=== PATIENT | female | born 1995 | race Caucasian/White ===

== ENCOUNTER 2019-10-11 11:48 | Outpatient (CLI) | payer MEDICAID ==
--- NOTE | 2019-10-13 13:52 | Ultrasound Report ---
Reason: SUPERVISION OF NORMAL Procedure Date: 10/11/2019 Accession Number: [id number] / [id number] Procedure: US - OB Detailed Eval CPT Code: Final Report FULL RESULT: EXAM: COMPLETE OBSTETRICAL ULTRASOUND EXAM DATE: 10/11/2019 02:00 PM. CLINICAL HISTORY: anatomic survey. COMPARISON: None. TECHNIQUE: Real-time sonographic evaluation of the fetus performed by the tassel making machine operator. Multiple wireless sales representative static images were saved for review. DATING: Established EGA 19 weeks 0 days with GUSTAVO 03/06/2020 based on LMP. EGA 21 weeks 4 days with GUSTAVO 02/17/2020 based on the current ultrasound. GENERAL EVALUATION Brown . Cardiac activity: 144 bpm. movement: Present. Presentation: Breech. Placenta: Anterior position. No evidence for previa. Umbilical cord: Not well seen. Central placental cord origin. Amniotic fluid: Subjectively normal. MVP 3.7 cm. BIOMETRY Bi-Parietal Diameter (BPD): 4.9 cm, 21 weeks 0 days Head Circumference (HC): 18.8 cm, 21 weeks 1 day Abdominal Circumference (AC): 16.9 cm, 22 weeks 0 days Femur Length (FL): 3.8 cm, 22 weeks 2 days Estimated Weight: 465 g, out of range. ANATOMY limited by position, anterior placenta, and maternal body habitus. The intracranial structures, stomach, abdominal wall and cord insertion, diaphragm, kidneys, bladder, and extremities were seen and demonstrate no abnormality. profile and facial structures, heart and outflow tracts, spine, and 3 vessel cord not well seen. MATERNAL STRUCTURES Uterus: Unremarkable. Cervix: Long and closed. Transabdominal length 4.4 cm. Right ovary/adnexa: Unremarkable. Left ovary/adnexa: Unremarkable. Free fluid: None. IMPRESSION: 1. Brown intrauterine with gestational age 19 weeks 0 days based on LMP. 2. Estimated weight is out of range for assigned dating. 3. Limited anatomic survey. profile and facial structures, heart and outflow tracts, spine, and 3 vessel cord not well seen. RADIA
== END 2019-10-11 11:49 | disposition home or self-care (01) ==
LOC: DI 11:48
PROVIDERS: ATTEND Nurse Practitioner Obstetrics & Gynecology
DX: Z34.82 Encounter for supervision of other normal pregnancy, second trimester (principal)
CPT/HCPCS: 76811

== ENCOUNTER 2019-11-14 15:04 | Outpatient (CLI) | payer MEDICAID ==
--- NOTE | 2019-11-16 02:05 | Ultrasound Report ---
Reason: SCREENING, COMPLETION OF FAS Procedure Date: 11/14/2019 Accession Number: [id number] / [id number] Procedure: US - OB F/U or Repeat CPT Code: Final Report FULL RESULT: EXAM: FOLLOW-UP OBSTETRICAL ULTRASOUND EXAM DATE: 11/14/2019 03:20 PM. CLINICAL HISTORY: SCREENING, COMPLETION OF FAS. COMPARISON: OB DETAILED EVAL 10/11/2019 12:13 PM. TECHNIQUE: Real-time sonographic evaluation of the fetus performed by the insurance defense paralegal. Additional transvaginal imaging to more accurately evaluate cervical length/placental position/etc. Multiple special service representative static images were saved for review. DATING: Established EGA 23 weeks 6 days with GUSTAVO 03/06/2020 based on stated dates. EGA 26 weeks 3 days with GUSTAVO 02/17/2020 based on first ultrasound. EGA 27 weeks 2 days with GUSTAVO 02/11/2020 based on the current ultrasound. GENERAL EVALUATION Brown . Cardiac activity: 151 bpm. movement: Visualized. Presentation: Transverse breech. Placenta: Anterior position. Amniotic fluid: Normal. JOSEY 13 cm. MVP 5.0 cm. BIOMETRY Bi-Parietal Diameter (BPD): 6.6 cm, 26 weeks 5 days Head Circumference (HC): 24.8 cm, 26 weeks 6 days Abdominal Circumference (AC): 23.5 cm, 27 weeks 6 days Femur Length (FL): 5.1 cm, 27 weeks 4 days Estimated Weight: 1093 g, out of range for 23 weeks 6 days. ANATOMY Three-vessel cord, four-chamber heart, lips/nose, and profile are unremarkable. RVOT, LVOT, and spine not well seen. IMPRESSION: 1. Brown live intrauterine with gestational age 23 weeks 6 days based on stated dates. 2. Estimated weight is out of range for assigned dating. 3. Estimated gestational age by today's composite measurements is 27 weeks 2 days. 4. Three-vessel cord, four-chamber heart, lips/nose, and profile are unremarkable. 5. RVOT, LVOT, and spine remain suboptimally visualized. RADIA
== END 2019-11-14 15:05 | disposition home or self-care (01) ==
LOC: DI 15:04
PROVIDERS: ATTEND Nurse Practitioner Obstetrics & Gynecology
DX: Z36.89 Encounter for other specified antenatal screening (principal)
CPT/HCPCS: 76816

== ENCOUNTER 2019-12-19 08:00 | Outpatient (CLI) | payer MEDICAID ==
[2019-12-19 17:55] LABS: BASOPHILS % (AUTO) 0.2 %; EOSINOPHILS # (AUTO) 0.1 10^3/uL (0.0-0.7); HGB - HEMOGLOBIN 11.5 g/dL (12.0-16.0); LYMPHOCYTES # (AUTO) 1.3 10^3/uL (1.5-3.5); LYMPHOCYTES % (AUTO) 14.3 %; MEAN CORPUSCULAR VOLUME 90.7 fL (81.0-99.0); MEAN PLATELET VOLUME 12.9 fL (7.9-10.8); MONOCYTES # (AUTO) 0.3 10^3/uL (0.0-1.0); MONOCYTES % (AUTO) 3.8 %; NEUTROPHILS # (AUTO) 7.2 10^3/uL (1.5-6.6); NEUTROPHILS % (AUTO) 79.7 %; PLT - PLATELET COUNT 169 10^3/uL (130-450); RED BLOOD COUNT 3.96 10^6/uL (4.20-5.40); RED CELL DISTRIBUTION WIDTH 13.6 % (12.0-15.0); WHITE BLOOD COUNT 9.1 x10^3/uL (4.8-10.8)
== END 2019-12-19 23:59 | disposition home or self-care (01) ==
LOC: LAB.WCP 08:00
PROVIDERS: ATTEND Obstetrics & Gynecology
DX: Z34.80 Encounter for supervision of other normal pregnancy, unspecified trimester (principal)
CPT/HCPCS: 82950; 85025; 86850

== ENCOUNTER 2019-12-20 13:23 | Outpatient (CLI) | payer MEDICAID ==
--- NOTE | 2019-12-21 03:32 | Ultrasound Report ---
Reason: INCOMPLETE FAS, SUPERVISION OF NORMAL Procedure Date: 12/20/2019 Accession Number: [id number] / [id number] Procedure: US - OB F/U or Repeat CPT Code: Final Report FULL RESULT: EXAM: FOLLOW-UP OBSTETRICAL ULTRASOUND EXAM DATE: 12/20/2019 01:37 PM. CLINICAL HISTORY: INCOMPLETE FAS, SUPERVISION OF NORMAL . COMPARISON: OB F/U OR REPEAT 11/14/2019 3:20 PM. TECHNIQUE: Real-time sonographic evaluation of the fetus performed by the gang punch operator. Multiple labor service representative static images were saved for review. DATING: Established EGA 29 weeks 0 days with GUSTAVO 03/06/2020 based on stated dates. GENERAL EVALUATION Brown . Cardiac activity: 139 bpm. movement: Visualized. Presentation: Cephalic. Placenta: Anterior position. Amniotic fluid: Normal. JOSEY 15.1 cm. MVP 5.5 cm. ANATOMY Spine, right ventricular outflow tract, and left ventricular outflow tract are unremarkable. IMPRESSION: 1. Brown live intrauterine with gestational age 29 weeks 0 days based on stated dates. 2. Spine, right ventricular outflow tract, and left ventricular outflow tract are unremarkable. RADIA
== END 2019-12-20 13:24 | disposition home or self-care (01) ==
LOC: DI 13:23
PROVIDERS: ATTEND Obstetrics & Gynecology
DX: Z34.83 Encounter for supervision of other normal pregnancy, third trimester (principal)
CPT/HCPCS: 76816

== ENCOUNTER 2019-12-26 09:53 | Outpatient (CLI) | payer MEDICAID | END 2019-12-26 09:54 | disposition home or self-care (01) | LOC: LAB 09:53 | PROVIDERS: ATTEND Obstetrics & Gynecology | DX: O99.810 Abnormal glucose complicating pregnancy (principal) | CPT/HCPCS: 36415; 82951; 82952 ==